=== PATIENT | female | born 1965 | race Caucasian/White ===

== ENCOUNTER 2021-06-29 14:09 | Emergency (ER) | payer OTHER ==
[~2021-06-29] VITALS: Ht 157.5 cm; Wt 68.0 kg
--- NOTE | 2021-06-29 14:29 | EKG ---
[place] [address] ELECTROCARDIOGRAM REPORT Name: CHER ROWLEY IMELDA Room: [facility].#: [id number] Admission: Attend Phys: Discharge: Date of : 63 Date of Service: 06/29/21 1414 Report #: [id number] THIS REPORT FOR: //name// [facility] ED Test Date: 2021-06-29 Test Time: 14:14:34 Pat Name: CHER ROWLEY Department: Room: Gender: F Lead Qa [facility]st[facility] 1965 Requested By: Pepe Luna Order Number: [id number] MD: José Miguel Nunez Measurements Intervals [place] Rate: 96 P: 19 HI: 130 QRS: -33 QRSD: 84 T: 17 QT: 350 QTc: 443 Interpretive Statements Sinus rhythm Inferior infarct, old Baseline wander in lead(s) II,III,aVF No previous ECG available for comparison Electronically Signed On 06-29-2021 14:28:58 CDT by José Miguel Nunez [email or web address] <ELECTRONICALLY SIGNED> By: José Miguel Nunez MD, [facility] 06/29/21 1428 1414 1414 José Miguel Nunez MD, [facility] /EPI
[2021-06-29] MEDS ORDERED: ADDERALL XR 2525 MG PO (14:32)
[2021-06-29] MEDS ORDERED: FLEXERIL PO (14:33)
[2021-06-29] MEDS ORDERED: ADDERALL 10 MG10 MG PO (14:33)
[2021-06-29 14:40] LABS: ABSOLUTE BASOPHILS 0.1 thou/uL (0.0-0.2); ABSOLUTE EOSINOPHILS 0.4 thou/uL (0.0-0.7); ABSOLUTE LYMPHOCYTES 2.7 thou/uL (0.8-5.3); ABSOLUTE MONOCYTES 0.4 thou/uL (0.0-1.2); ABSOLUTE NEUTROPHILS 3.7 thou/uL (1.6-8.1); BASOPHILS 0.8 %; EOSINOPHILS 5.6 %; HEMATOCRIT 41.6 % (37.0-47.0); MCH 27.9 pg (26.0-34.0); MCHC 33.7 g/dL (28.0-37.0); MCV 82.7 fL (80.0-100.0); MONOCYTES 5.1 %; NUCLEATED RBCS 0 /100WBC; PLATELET COUNT* 249 thou/uL (150-400); POLYS 51.5 %; RBC 5.03 mil/uL (4.20-5.00); RDW-CV 13.4 % (10.5-14.5); WBC 7.2 thou/uL (4.0-11.0)
[2021-06-29 14:48] LABS: CALCIUM 8.9 mg/dL (8.5-10.1); CREATININE 0.7 mg/dL (0.6-1.3); POTASSIUM 3.9 mmol/L (3.5-5.1)
[2021-06-29 15:02] LABS: ALBUMIN 3.8 g/dL (3.4-5.0); CK-MB MASS 0.5 ng/mL (<0.5-3.6); TOTAL BILIRUBIN 0.3 mg/dL (<0.1-1.0); TOTAL PROTEIN 7.2 g/dL (6.4-8.2)
[2021-06-29 15:15] VITALS: BP 130/67
== END 2021-06-29 15:37 | disposition home or self-care (01) ==
LOC: M.ERS 14:09
PROVIDERS: Family Medicine
DX: R07.89 Other chest pain (principal); Z79.899 Other long term (current) drug therapy